=== PATIENT | female | born 1950 | race Caucasian/White ===

== ENCOUNTER → 2019-12-17 | Outpatient (CLI) | payer MEDICARE ==
--- NOTE | 2019-12-18 09:33 | REPMRS ---
Patient History The patient states she had a clinical breast exam in 2018.Patient is postmenopausal. No known family history of cancer. 3D TOMOSYNTHESIS WAS PERFORMED. [facility] for [facility] cancer [facility] 4.1%. Digital Woman Screen Mammo: December 17, 2019 - Exam #: [id number] Bilateral CC and MLO view(s) were taken. Technologist: Aurora Cartwright, Technologist Prior study comparison: March 24, 2018, bilateral screening mammogram, performed at [facility]. FINDINGS: The breast tissue is heterogeneously dense. This may lower the sensitivity of mammography. There has been no change in the appearance of the mammogram from the prior studies. There is a moderate amount of residual fibroglandular tissue which is fairly symmetric. There is no interval development of dominant mass, areas of architectural distortion, or clustered microcalcification typical of malignancy. Assessment: BI-RADS/ACR category 1 mammogram. Negative Mammogram. Recommendation Routine screening mammogram in 1 year (for women over age 40). This mammogram was interpreted with the aid of an FDA-approved computer-aided dectection system. Electronically Signed By: Nick Isidro MD 12/18/19 0933
== END ==
LOC: M WHC 12:59
PROVIDERS: ATTEND Registered Nurse
DX: Z12.31 Encounter for screening mammogram for malignant neoplasm of breast (principal); Z13.820 Encounter for screening for osteoporosis; Z78.0 Asymptomatic menopausal state

== ENCOUNTER → 2020-03-10 | Outpatient (REF) | payer MEDICARE | LOC: M LAB REF 07:19 | PROVIDERS: ATTEND Dermatology | DX: L57.0 Actinic keratosis (principal) ==

== ENCOUNTER → 2021-01-20 | Outpatient (CLI) | payer MEDICARE ==
--- NOTE | 2021-01-20 11:59 | REP ---
INDICATION: RT LEG FRONT SANCHEZ PRE TIBIA MASS CYST VS SOLID COMPARISON: None TECHNIQUE: Real time B-mode coronado scale and color Doppler ultrasound examination using linear high-frequency transducer with standoff pad. FINDINGS: Directed ultrasound examination overlying the right medial sanchez demonstrates 1.1 x 0.5 x 1.0 cm ovoid solid hyperechoic avascular lesion. Surrounding subcutaneous tissue appears normal. Finding may represent benign lipoma. IMPRESSION: Ovoid hyperechoic avascular lesion. Differential diagnosis includes but is not limited to lipoma. <Electronically signed by Mike Escobar > 01/20/21 [id number]
== END ==
LOC: M RAD 10:55
PROVIDERS: ATTEND Internal Medicine
DX: R22.41 Localized swelling, mass and lump, right lower limb (principal)

== ENCOUNTER → 2021-04-08 | Outpatient (CLI) | payer MEDICARE ==
--- NOTE | 2021-04-08 12:35 | REP ---
INDICATION: LUNG CANCER SCREENING. COMPARISON: None. TECHNIQUE: Axial noncontrast images from the thoracic inlet to the upper abdomen using low-dose lung screening technique (LDCT). As per the protocol only lung window images were sent to the read station for interpretation. FINDINGS: In the right middle lobe there is a pleural based 6 mm sized nodular density. In the right upper lobe there is a 3 mm sized pleural base nodular density. Curvilinear densities are seen in the lung bases. There is mild biapical pleuroparenchymal scarring. Grossly the mediastinum and pulmonary luís are within normal limits. Grossly the imaged upper abdomen and imaged osseous structures are within normal limits. IMPRESSION: 1. There is a 6 mm size nodule seen in the right middle lobe as described above. According to the revised Fleischner society criteria this represents a category 4A lesion for which a 3 month follow-up chest CT is recommended. 2. Other findings, as described above, which can also be followed in the 3 month time period. <Electronically signed by Dirk Hilliard > 04/08/21 [id number]
== END ==
LOC: M RAD 10:46
PROVIDERS: ATTEND Internal Medicine
DX: Z12.2 Encounter for screening for malignant neoplasm of respiratory organs (principal); R91.8 Other nonspecific abnormal finding of lung field; Z87.891 Personal history of nicotine dependence

== ENCOUNTER → 2021-06-02 | Outpatient (REF) | payer MEDICARE | LOC: M LAB REF 14:14 | PROVIDERS: ATTEND Physician Assistant | DX: L57.0 Actinic keratosis (principal) ==

== ENCOUNTER → 2021-07-31 | Outpatient (CLI) | payer MEDICARE ==
--- NOTE | 2021-07-31 16:07 | REP ---
INDICATION: OTHER NONSPECIFIC ABNORMAL FINDING OF LUNG FIELD. COMPARISON: 04/08/2021. TECHNIQUE: CT chest performed without the use of intravenous contrast. Sagittal and coronal reconstruction images are performed. FINDINGS: Lungs: Clear, no infiltrate or nodule. There is mild subpleural scarring on the right. Mediastinum: No gross adenopathy. Julia: No gross adenopathy. Axilla: No gross adenopathy. Pleura: No effusion. Heart: Not enlarged. Thoracic aorta: No aneurysm. Upper abdominal structures: There is a 2.5 cm cystic structure in the visualized portions of the upper pole of the right kidney centrally. Visualized osseous structures: There are mild degenerative changes of the spine without compression deformity. IMPRESSION: Mild subpleural scarring in the right lung with no evidence of suspicious nodule. <Electronically signed by Nick Isidro > 07/31/21 [id number]
== END ==
LOC: M RAD 14:28
PROVIDERS: ATTEND Internal Medicine
DX: R91.8 Other nonspecific abnormal finding of lung field (principal)

== ENCOUNTER → 2022-03-05 | Outpatient (CLI) | payer MEDICARE ==
[~2022-03-05] MED LIST: FAMO40TA3 PO; OMEP-173 PO; ROSU10TA6 PO; VITA100093 PO
== END ==
LOC: M WHC 10:44
PROVIDERS: ATTEND Internal Medicine
DX: Z12.31 Encounter for screening mammogram for malignant neoplasm of breast (principal); M81.0 Age-related osteoporosis without current pathological fracture; Z78.0 Asymptomatic menopausal state; Z85.828 Personal history of other malignant neoplasm of skin

== ENCOUNTER → 2022-10-05 | Outpatient (CLI) | payer MEDICARE | LOC: M RAD 12:34 | PROVIDERS: ATTEND Internal Medicine | DX: Z12.2 Encounter for screening for malignant neoplasm of respiratory organs (principal); I25.10 Atherosclerotic heart disease of native coronary artery without angina pectoris; I70.0 Atherosclerosis of aorta ==

== ENCOUNTER → 2023-12-28 | Outpatient (CLI) | payer MEDICARE | LOC: M RAD 10:29 | PROVIDERS: ATTEND Internal Medicine | DX: Z12.2 Encounter for screening for malignant neoplasm of respiratory organs (principal); F17.210 Nicotine dependence, cigarettes, uncomplicated ==

== ENCOUNTER → 2024-03-06 | Outpatient (CLI) | payer MEDICARE | LOC: M WHC 13:00 | PROVIDERS: ATTEND Internal Medicine | DX: Z12.31 Encounter for screening mammogram for malignant neoplasm of breast (principal); M85.89 Other specified disorders of bone density and structure, multiple sites ==

== ENCOUNTER → 2025-01-31 | Outpatient (REF) | payer MEDICARE ==
[~2025-01-31] MED LIST changes: -ROSU10TA6 PO; +ROSU10TA61 PO
[2025-01-31 15:52] LABS: PERCENT SATURATION 22.4 % (13.2-45.0)
== END ==
LOC: M LAB REF 14:59
PROVIDERS: ATTEND Internal Medicine
DX: D64.9 Anemia, unspecified (principal)

== ENCOUNTER → 2025-02-27 | Outpatient (CLI) | payer MEDICARE | LOC: M RAD 10:39 | PROVIDERS: ATTEND Internal Medicine | DX: R91.1 Solitary pulmonary nodule (principal); J43.9 Emphysema, unspecified; J98.11 Atelectasis; F17.210 Nicotine dependence, cigarettes, uncomplicated ==